=== PATIENT | female | born 1985 | race Caucasian/White ===

== ENCOUNTER 2018-03-24 17:23 | Outpatient (CLI) | END 2018-03-24 18:50 | disposition home or self-care (01) ==

== ENCOUNTER 2018-03-31 16:46 | Outpatient (CLI) | END 2018-03-31 18:48 | disposition home or self-care (01) ==

== ENCOUNTER 2018-04-05 11:49 | Inpatient (IN) | END 2018-04-08 16:10 | disposition home or self-care (01) | DRG 766 ==